=== PATIENT | male | born 1970 | race African-American/Black ===

== ENCOUNTER 2022-09-30 09:27 | Emergency (ER) | payer OTHER ==
[~2022-09-30] VITALS: Ht 170 cm; Wt 121.0 kg
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
[2022-09-30] MEDS ORDERED: KETOROLAC 15 MG/ML VIAL IM ONE (10:00)
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
[2022-09-30 10:26] VITALS: BP 168/99
== END 2022-09-30 10:26 | disposition home or self-care (01) ==
LOC: ER 09:38
DX: S40.012A Contusion of left shoulder, initial encounter (principal); S70.02XA Contusion of left hip, initial encounter; S30.0XXA Contusion of lower back and pelvis, initial encounter; R42 Dizziness and giddiness; V48.5XXA Car driver injured in noncollision transport accident in traffic accident, initial encounter; Y92.410 Unspecified street and highway as the place of occurrence of the external cause
CPT/HCPCS: 73030